=== PATIENT | male | born 1975 | race Caucasian/White ===

== ENCOUNTER 2021-03-21 18:56 | Inpatient (IN) ==
[2021-03-21] MEDS ORDERED: *HR* LORazepam 2 MG/ML VIAL IM PRN (21:55)
[2021-03-21] MEDS ORDERED: haloperidoL 5 MG TABLET PO PRN (21:55)
[2021-03-21] MEDS ORDERED: *HR* LORazepam 1 MG TABLET PO PRN (21:55)
[2021-03-21] MEDS ORDERED: traZODone 50 MG TABLET PO PRN (21:55)
[2021-03-21] MEDS ORDERED: Haloperidol Lactate 5 MG/ML VIAL IM PRN (21:55)
[2021-03-21] MEDS: hydrOXYzine pamoate 25 MG CAPSULE PO PRN (22:25)
[2021-03-21] MEDS ORDERED: Nitroglycerin 0.4 MG TAB.SUBL SL PRN (22:54)
[2021-03-21] MEDS: Nicotine 2 MG GUM BC PRN (23:22)
[2021-03-21] MEDS: Aspirin 81 MG TAB.CHEW PO SCH (23:22)
[2021-03-22] MEDS: Aspirin 81 MG TAB.CHEW PO SCH ×2 (08:56→20:57)
[2021-03-22] MEDS ORDERED: MOM Conc 10 ML UD.LIQ PO PRN (09:09)
[2021-03-22] MEDS ORDERED: Mag Hydrox/Al Hydrox/Simeth 30 ML UDC PO PRN (09:09)
[2021-03-22] MEDS ORDERED: Melatonin 3 MG TABLET PO PRN (09:23)
[2021-03-22] MEDS: Nicotine 21 MG PATCH.TD24 TD SCH (11:23)
[2021-03-22] MEDS: hydrOXYzine pamoate 25 MG CAPSULE PO PRN ×2 (12:13→23:29)
[2021-03-22] MEDS: Budesonide/Formoterol 80/4.5 1 PUFF INH IH SCH ×2 (14:07→21:00)
[2021-03-22] MEDS: Acetaminophen 325 MG TABLET PO PRN (19:27)
[2021-03-22] MEDS: ARIPiprazole 5 MG TABLET PO SCH (20:57)
[2021-03-22] MEDS: Nicotine 2 MG GUM BC PRN (21:01)
[2021-03-23] MEDS: Nicotine 21 MG PATCH.TD24 TD SCH (09:10)
[2021-03-23] MEDS: Budesonide/Formoterol 80/4.5 1 PUFF INH IH SCH ×2 (09:11→22:20)
[2021-03-23] MEDS: Aspirin 81 MG TAB.CHEW PO SCH ×2 (09:11→22:17)
[2021-03-23] MEDS ORDERED: Nitroglycerin 0.4 MG TAB.SUBL SL PRN (09:12)
[2021-03-23] MEDS: hydrOXYzine pamoate 25 MG CAPSULE PO PRN (16:20)
[2021-03-23] MEDS: Acetaminophen 325 MG TABLET PO PRN (16:20)
[2021-03-23] MEDS: ARIPiprazole 5 MG TABLET PO SCH (22:17)
[2021-03-23] MEDS: traZODone 50 MG TABLET PO PRN (22:17)
[2021-03-24] MEDS: Aspirin 81 MG TAB.CHEW PO SCH ×2 (09:09→20:54)
[2021-03-24] MEDS: Nicotine 21 MG PATCH.TD24 TD SCH (09:09)
[2021-03-24] MEDS: Budesonide/Formoterol 80/4.5 1 PUFF INH IH SCH ×2 (09:33→20:53)
[2021-03-24] MEDS: hydrOXYzine pamoate 25 MG CAPSULE PO PRN (14:31)
[2021-03-24] MEDS: ARIPiprazole 5 MG TABLET PO SCH (20:54)
[2021-03-24] MEDS: traZODone 50 MG TABLET PO PRN (20:55)
[2021-03-24] MEDS: Acetaminophen 325 MG TABLET PO PRN (21:55)
[2021-03-24 22:55] VITALS: O2SAT 96
[2021-03-25] MEDS: Aspirin 81 MG TAB.CHEW PO SCH (08:47)
[2021-03-25] MEDS: Nicotine 21 MG PATCH.TD24 TD SCH (08:48)
[2021-03-25] MEDS: Budesonide/Formoterol 80/4.5 1 PUFF INH IH SCH (08:50)
[2021-03-25] MEDS: hydrOXYzine pamoate 25 MG CAPSULE PO PRN ×2 (08:51→11:17)
[2021-03-25 10:17] VITALS: BP 119/77; PULSE 71; TEMP 98.1
== END 2021-03-25 12:55 | disposition home or self-care (01) | DRG 751 ==
LOC: EMEROOARM 18:56 → 1ANU 21:46
PROVIDERS: ADMIT Psychiatry & Neurology Psychiatry; ATTEND Psychiatry & Neurology Psychiatry